=== PATIENT | male | born 1995 | race Caucasian/White ===

== ENCOUNTER 2019-11-24 20:05 | Emergency (ER) | payer SELFPAY ==
[2019-11-24 20:06] VITALS: BP 157/84; PULSE 90; RESP 16; TEMP 36.2; O2SAT 98; BMI 39.6
--- NOTE | 2019-11-24 22:00 | RAD_ITS ---
STUDY: X-RAY - RIGHT HAND REASON FOR EXAM: Male, 24 years old. CUT FINGERS ON BROKEN WINDOW. MULTIPLE LACERATIONS TO FINGERS. TECHNIQUE: 3 view(s) of the hand. COMPARISON: None. FINDINGS: Normal radiocarpal articulation. Normal distal radioulnar joint. Normal visualized carpal bones. Normal carpal articulations Normal carpometacarpal articulation of the thumb. Normal second through fifth carpometacarpal joints. Normal metacarpi. Normal joints. No visualized fracture. No visualized radiopaque foreign body. The soft tissue structures are unremarkable. RAD/Hand Min 3 Views IMPRESSION: Normal x-ray examination of the hand. Electronically Signed: Ronny Raygoza MD at 22:47 EDT , Service support ,
[2019-11-24] MEDS: Diphth,Pertuss(Acell),Tet Vac 0.5 ML Vial IM (22:53)
--- NOTE | 2019-11-24 23:10 | ED.DCSUM_ITS ---
- ER Visit Summary Date of Service: 11/24/19 Chief Complaint: [Lacerations to right hand] History of Present Illness: The patient is a 24 M [presents to the emergency department after sustaining lacerations to the right thumb and long finger. Patient states that around 4:30 PM he was pushing up a broken window when his hand slipped into the broken glass lacerating his fingers. Patient is unsure of his last tetanus shot. Patient is right-hand dominant.] Physical Examination: [Right hand-patient has a 3 cm flap laceration over the distal lateral aspect of the thumb with small extension of laceration onto the proximal aspect of the nail. Patient has normal range of motion at the IP joint. He is neurovascular intact. Right long finger-patient has a 4.5 cm flap-like laceration over the dorsum of the DIP joint spanning the middle and distal phalanx. Small scalloped-like involvement of the extensor tendon noted. Patient has normal strength against resistance in flexion and extension. He is neurovascular intact.] Test Results: [X-rays of the right hand obtained showed no foreign bodies and no fractures.] Emergency Department Course and Treatment: [Laceration repair-patient had digital blocks performed of the thumb and long finger with a total of 8 8 cc of 1% lidocaine used for each finger. Wound cleansed with Shur-Clens and irrigated with copious saline. Using 5-0 nylon a total of 7 single ruptured sutures placed in the laceration involving the thumb. Using 5-0 nylon a total of 9 single ruptured sutures placed in to the laceration involving the long finger with good wound edge approximation. Patient tired procedure well. Clean dressings applied.] She received tetanus booster. Treatment Plan: [Patient to have sutures removed in 10 days. Patient advised to return if redness, swelling, purulent drainage, or condition should worsen anyway.] Patient will be started on Keflex. Disposition: [Discharged home in stable condition] Impression: [Lacerations to right thumb and long finger total length 7.5 cm- simple repair] This note was generated with Eniramation software. It may contain incorrect words, spelling, and punctuation that were not noted in review of the chart prior to signing ED Disposition - Plan for ED Patient: Referrals: Care Physician,No Primary [Primary Care Provider] -
--- NOTE | 2019-11-24 23:13 | ED.DEP ---
ED Disposition - Plan for ED Patient: Instructions: ED Laceration Hand Prescriptions: Cephalexin [Keflex] 500 mg PO Q6 #40 cap Prescription Printed Referrals: Care Physician,No Primary [Primary Care Provider] - Matthew Willis MD [STAFF PHYSICIAN] - 10 Day for suture removal
[2019-11-24] MEDS: Cephalexin 250 MG Capsule 500 MG PO (23:31)
== END 2019-11-24 23:46 | disposition home or self-care (01) ==
PROVIDERS: Emergency Provider Emergency Medicine
DX: S61.011A Laceration without foreign body of right thumb without damage to nail, initial encounter (principal); S61.212A Laceration without foreign body of right middle finger without damage to nail, initial encounter; W25.XXXA Contact with sharp glass, initial encounter; Y93.9 Activity, unspecified; Y92.89 Other specified places as the place of occurrence of the external cause; Y99.9 Unspecified external cause status; Z72.0 Tobacco use; F12.90 Cannabis use, unspecified, uncomplicated; Z23 Encounter for immunization
CPT/HCPCS: 12002; 73130; 90471; 90715; 99284

== ENCOUNTER 2024-12-10 10:04 | Emergency (ER) | payer MEDICAID, SELFPAY ==
[2024-12-10 10:06] VITALS: BP 145/90; PULSE 67; RESP 16; TEMP 36.6; O2SAT 100; BMI 42.0
--- NOTE | 2024-12-10 10:11 | RAD_ITS ---
PROCEDURE: ANKLE MIN 3 VIEWS 12/10/2024 REASON FOR EXAM: PAIN TECHNIQUE: Procedure Code: PATRICIAANK Modality: DX Procedure: ANKLE MIN 3 VIEWS Laterality: Left COMPARISON: None FINDINGS: Bones: No fracture. Ossicular density caudal to the distal fibula and smaller ossicular density caudal to the medial malleolus is seen. Enthesopathy at the medial aspect of the malleolus. These findings are likely the sequelae of chronic/prior remote injury. Joints: Normal. Soft tissues: Mild soft tissue swelling. Small joint effusion. Other: No foreign body RAD/Ankle min 3 Views IMPRESSION: Soft tissue swelling. No fracture. See above. Reading Location: [id number]
--- NOTE | 2024-12-10 10:17 | EDS_ITS ---
HPI History of Present Illness Chief Complaint: Lower Extremity Injury Informant: patient Occured/Mechanism Mechanism/Context: Yes blunt trauma Onset/Context/Timing Onset: Yesterday Quality of Pain: Sharp Current Severity: Mild Maximum Severity: Moderate Associated Symptoms Associated Symptoms: Negative for Parasthesia, Weakness or Loss of Funtion Narrative Prior similar symptoms: Yes Recent Illness/Hospitalization: No PFSH PFSH no medical history Home Medications ?Medication ?Instructions ?Recorded ?Last Taken ?Type cephalexin 500 mg capsule 500 mg PO Q6 #40 caps Unknown Rx Allergy/AdvReac Type Severity Reaction Status Date / Time No Known Allergies Allergy Verified 12/10/24 10:07 Social History Smoking Status: Never smoker ROS ROS ED ROS Narrative Denies recent this. Constitutional Constitutional ED: Denies chills or fever(s) Eyes Eyes: Denies blurry vision ENT ENT ED: Denies ear pain Cardiovascular Cardiovascular: Denies chest pain Respiratory/Chest Respiratory/Chest: Denies cough Gastrointestinal Gastrointestinal: Denies abdominal pain Genitourinary Genitourinary ED: Denies dysuria Musculoskeletal Musculoskeletal: Denies arthralgias Integumentary Denies abscess Neurologic Neurologic: Denies headache(s) Psychiatric Psychiatric: Denies anxiety Endocrine Endocrinology: Denies polydipsia Hematologic/Lymphatic Hematologic/Lymphatic: Denies easy bleeding, easy bruising or lymphadenopathy Allergic/Immunologic Allergic/Immunologic ED: Denies mouth swelling, tongue swelling or urticaria EXAM Physical Exam Narrative Exam Narrative: 2-year-old male sitting upright in bed no acute distress. Vital signs stable afebrile. H EENT exam pupils round react light. Moist rehemorrhage. No trauma to his face or scalp. Nontender. C-spine and neck nontender. Back and spine nontender. Lungs clear. Heart regular rhythm no murmur. Chest wall ribs nontender. Abdomen soft nontender. Pelvic girdle intact. Moving all 4 extremities. Normal strength. Upper and right lower extremity nontender. No deformity. Left hip and knee nontender. Left ankle medial and lateral malleoli mildly tender. No signs of swelling. Achilles tendon intact. Dorsi plantarflexion intact. DP pulse intact. Foot nontender nonswollen. No deformity. Able wiggle toes. Normal touch sensation. Normal range of motion. Neurologically is awake alert. Answering questions following commands. No focal motor deficits. Const Vital Signs: 12/10/24 10:06 Temperature 97.8 F Temperature Source Oral Pulse Rate 67 Respiratory Rate 16 Blood Pressure 145/90 H Blood Pressure Mean 108 Pulse Ox 100 Oxygen Delivery Method Room Air Positive well nourished and well developed; Negative for cachectic, contractures or unkempt General Appearance ED: well developed and NAD; Negative for unkempt, cachectic or contractures Nutritional Appearance: Negative for cachectic HEENT Reports moist mucous membranes normocephalic and atraumatic Eyes PERRL Neck full ROM and supple Chest Wall inspection of chest normal and palpation of chest normal Resp normal respiratory effort, no retractions and clear to auscultation bilaterally Cardio regular rate, regular rhythm, S1 normal heart sound, S2 normal heart sound and no murmurs GI non-tender, non-distended and no masses Auscultation: normoactive bowel sounds Palpation: soft; Negative for tender, guarding or rebound tenderness present Back/Spine no CVA tenderness General Back: Negative for CVA tenderness Cervical Spine: Negative for cervical spine tenderness Thoracic Spine / Upper Back: Negative for thoracic spinal tenderness Lumbar Spine / Lower Back: Negative for lumbar spinal tenderness Extremity normal to inspection and full ROM Extremity Narrative: Tender both medial and lateral malleolus of the left ankle. Left foot neurovascularly intact. Normal DP pulse. Normal touch sensation. Normal dorsi and plantarflexion. Achilles tendon intact. No significant swelling. No discoloration. No bony deformity. General Extremety ED: Negative for cyanosis General Extremity: Negative for cyanosis Neuro oriented x3, CN's II-XII intact bilaterally, moves all extremities and no sensory deficits noted Sensorium / Orientation: alert, oriented to person, oriented to place and oriented to time Motor Exam: strength 5/5 throughout Psych mental status grossly normal Appearance: Negative for unkempt Skin no wounds Lesions: no lesions Rashes: no rashes MDM MDM MDM Narrative Medical decision making narrative: 29-year-old male twisted his left ankle yesterday when he fell from a ladder about 2-1/2 feet. Complaining of pain. X-rays being obtained. He did not want anything currently for pain. X-ray shows chronic changes old avulsions. But no acute fracture no dislocation. Treat as an ankle sprain with an Aircast. History & Record Review Discussion w/independent historian: Patient and Family Additional record(s) reviewed:: Prior ED visit Radiography Diagnostic Testing: Left ankle x-ray, 3 views, interpreted by myself shows chronic changes. No fracture. Old avulsions. Bones look healthy. No dislocation. No significant soft tissue swelling. Discharge Plan Triage Chief Complaint: Lower Extremity Injury ED Provider: Mikey Sauer Dx/Rx/DC Orders Clinical Impression: Fall, Left ankle sprain Instructions: ED Ankle Sprain (Adult) Prescriptions: No Action cephalexin 500 MG capsule 500 mg PO Q6 Qty: 40 0RF Primary Care Provider: Care Physician,No Primary Referrals: Raimundo Phillip DPM [Med Staff - Active Staff, Podiatry] - As Needed Care Physician,No Primary [Primary Care Provider, Medical] Activity Restrictions/Additional Instructions: Ice and elevate your ankle decrease pain and swelling. Aircast to help you walk. Motrin and Tylenol for pain. This should progressively improve over the next 1 to 2 weeks. If not follow-up. Your x-ray showed chronic changes but no acute break. Print Language: Citizen Of [place] Disposition Disposition: Home, Self Care
[2024-12-10 10:54] VITALS: BP 132/76; PULSE 64; RESP 18; TEMP 36.6; O2SAT 99
== END 2024-12-10 11:01 | disposition home or self-care (01) ==
LOC: ED 10:37
PROVIDERS: Emergency Provider Emergency Medicine; Visit Provider Emergency Medicine
DX: S93.402A Sprain of unspecified ligament of left ankle, initial encounter (principal); W11.XXXA Fall on and from ladder, initial encounter
CPT/HCPCS: 73610; 99283